=== PATIENT | female | born 1975 | race African-American/Black ===

== ENCOUNTER 2017-06-07 20:32 | Emergency (ER) | payer MEDICARE, MEDICAID ==
[~2017-06-07] VITALS: Ht 167.6 cm; Wt 80.7 kg
[2017-06-07 21:22] VITALS: BP 154/77
[2017-06-07] MEDS ORDERED: IBUPROFEN 600 MG TABLET PO ONE ×2 (21:26→21:30)
== END 2017-06-07 21:39 | disposition home or self-care (01) ==
LOC: ER 20:36
DX: M79.671 Pain in right foot (principal); M79.672 Pain in left foot
CPT/HCPCS: 99282; A4606; Z7610